=== PATIENT | male | born 1950 | race Caucasian/White ===

== ENCOUNTER 2016-12-12 09:00 | Emergency (ER) | payer MEDICARE ==
[~2016-12-12] VITALS: Ht 177.8 cm; Wt 79.4 kg
[2016-12-12 09:15] LABS: HEMOGLOBIN 14.9 g/dl (14.0-18.0); MEAN CELL VOLUME 101.7 fl (80.0-94.0); MEAN CORPUSCULAR HGB 36.1 pg (27.0-31.0); MEAN CORPUSCULAR HGB CONC 35.5 g/dl (33.0-37.0); MEAN PLATELET VOLUME 9.9 fl (9.6-12.3); PLATELET COUNT AUTOMATED 243 10*3/uL (130-400); RED BLOOD COUNT 4.13 10*6/uL (4.50-5.90); RED CELL DISTRI WIDTH 11.9 % (0-14.5)
[2016-12-12 09:24] LABS: PROTHROMBIN TIME 10.1 SECONDS (9.0-12.4)
[2016-12-12 09:31] LABS: ALBUMIN 3.7 gm/dl (3.1-4.5); ALKALINE PHOSPHATASE 73 U/L (45-117); BILIRUBIN, TOTAL 0.4 mg/dl (0.2-1.0); BUN 15 mg/dl (7-24); CARBON DIOXIDE 13 mmol/L (21-32); CHLORIDE 109 mmol/L (98-107); EST GLOM FILT AFRICAN AMERICAN > 60 ml/min; GLUCOSE 163 mg/dL (65-99); POTASSIUM 3.1 mmol/L (3.5-5.1); SGOT/AST 25 IU/L (3-35); SGPT/ALT 52 U/L (12-78); SODIUM 142 mmol/L (136-145); TOTAL PROTEIN 7.1 gm/dL (6.4-8.2)
[2016-12-12 09:32] LABS: TROPONIN I 0.038 ng/ml (<0.045)
[2016-12-12 09:37] LABS: EOSINOPHIL # 0.4 10*3/uL (0-0.4); EOSINOPHILS 4 % (1-4); LYMPHOCYTE # 5.7 10*3/uL (1.3-4.4); MONOCYTE # 0.9 10*3/uL (0.1-1.0); NEUTROPHILS 36 % (47-73); TOTAL CELLS COUNTED 100 #CELLS
[2016-12-12 09:38] LABS: PLATELET SUFFICIENCY NORMAL (NORMAL)
== END 2016-12-12 10:01 | disposition short-term general hospital (02) ==
LOC: ED 09:00
PROVIDERS: Emergency Medicine
DX: I21.3 ST elevation (STEMI) myocardial infarction of unspecified site (principal)

== ENCOUNTER → 2017-01-27 | Outpatient (CLI) | payer MEDICARE | END | disposition home or self-care (01) | LOC: CARD 01-20 09:00 | DX: I08.1 Rheumatic disorders of both mitral and tricuspid valves (principal); Z95.5 Presence of coronary angioplasty implant and graft ==

== ENCOUNTER → 2021-03-03 | Outpatient (CLI) | payer MEDICARE | END | disposition home or self-care (01) | LOC: CARD 01:49 | PROVIDERS: ATTEND Internal Medicine Cardiovascular Disease | DX: I34.0 Nonrheumatic mitral (valve) insufficiency (principal); R06.00 Dyspnea, unspecified ==